=== PATIENT | male | born 1975 | race African-American/Black ===

== ENCOUNTER 2018-02-01 23:47 | Emergency (ER) | payer MEDICAID ==
[~2018-02-01] VITALS: Ht 172.7 cm; Wt 107.0 kg
[2018-02-01 23:50] VITALS: BP 145/91
== END 2018-02-02 00:38 | disposition home or self-care (01) ==
LOC: ED 02-02 00:32
DX: J45.31 Mild persistent asthma with (acute) exacerbation (principal); K21.9 Gastro-esophageal reflux disease without esophagitis; I10 Essential (primary) hypertension; E11.9 Type 2 diabetes mellitus without complications
CPT/HCPCS: 99283

== ENCOUNTER 2018-03-31 03:19 | Emergency (ER) | payer MEDICAID ==
[~2018-03-31] VITALS: Ht 175.3 cm; Wt 115.0 kg
[2018-03-31] MEDS ORDERED: HYDROcodone/APAP 5/325 TABLET PO ONE (03:30)
[2018-03-31] MEDS ORDERED: IBUPROFEN 200 MG TABLET PO ONE (03:30)
[2018-03-31] MEDS ORDERED: IBUPROFEN 200 MG TABLET ONE (03:31)
[2018-03-31] MEDS ORDERED: HYDROcodone/APAP 5/325 TABLET ONE (03:31)
[2018-03-31 04:51] VITALS: BP 155/99
== END 2018-03-31 05:08 | disposition home or self-care (01) ==
LOC: ED 03:27
DX: S93.491A Sprain of other ligament of right ankle, initial encounter (principal); S93.431A Sprain of tibiofibular ligament of right ankle, initial encounter; S93.611A Sprain of tarsal ligament of right foot, initial encounter; E11.9 Type 2 diabetes mellitus without complications; J45.909 Unspecified asthma, uncomplicated; I10 Essential (primary) hypertension; Z88.0 Allergy status to penicillin; F17.200 Nicotine dependence, unspecified, uncomplicated; X50.1XXA Overexertion from prolonged static or awkward postures, initial encounter; Y93.89 Activity, other specified; Y92.89 Other specified places as the place of occurrence of the external cause; Y99.0 Civilian activity done for income or pay
CPT/HCPCS: 99284

== ENCOUNTER 2018-07-28 07:23 | Emergency (ER) | payer SELFPAY ==
[~2018-07-28] VITALS: Ht 177.8 cm; Wt 100.0 kg
[2018-07-28 07:26] VITALS: BP 149/109
[2018-07-28] MEDS ORDERED: KETOROLAC 30 MG/1 ML IM ONE (08:00)
[2018-07-28] MEDS ORDERED: KETOROLAC 30 MG/1 ML ONE (08:06)
[2018-07-28 08:20] LABS: BASOPHILS # (AUTO) 0.05 x10^3/uL (0-0.1); BASOPHILS % (AUTO) 1 % (0-1); EOSINOPHILS % (AUTO) 5 % (1-7); LYMPHOCYTES # (AUTO) 3.06 x10^3/uL (1-3.4); LYMPHOCYTES % (AUTO) 36 % (22-44); MD NO; MEAN CORPUSCULAR HEMOGLOBIN 28.1 pg (27.5-34.5); MEAN CORPUSCULAR HGB CONC 32.4 g/dL (33.2-36.2); MEAN CORPUSCULAR VOLUME 86.9 fL (81-97); MEAN PLATELET VOLUME 8.2 fL (7.4-10.4); MONOCYTES # (AUTO) 0.73 x10^3/uL (0.2-0.8); MONOCYTES % (AUTO) 9 % (2-9); NEUTROPHILS # (AUTO) 4.39 x10^3/uL (1.8-6.8); NEUTROPHILS % (AUTO) 51 % (42-75); PLATELET COUNT 250 x10^3/uL (130-400); RED BLOOD COUNT 5.08 x10^6/uL (4.38-5.82); RED CELL DISTRIBUTION WIDTH 14.6 % (9.4-14.8)
[2018-07-28 08:32] LABS: ANION GAP 5 mmol/L (5-15); CALCIUM 9.3 mg/dL (8.5-10.1); CHLORIDE 107 mmol/L (98-107); CREATININE 1.08 mg/dL (0.7-1.3)
--- NOTE | 2018-07-28 08:49 | NUR ---
REPORT FROM SHAMIKA ZAMORA. ASSUMED CARE OF PATIENT AT THIS TIME.
--- NOTE | 2018-07-28 09:09 | NUR ---
Patient/Caregiver given discharge instructions and they have confirmed that they understand the instructions. Patient ambulatory with steady gait with crutches. Patient demonstrates proper use of crutches.
== END 2018-07-28 09:10 | disposition home or self-care (01) ==
LOC: ED 09:00
DX: M25.572 Pain in left ankle and joints of left foot (principal); M79.672 Pain in left foot; J45.909 Unspecified asthma, uncomplicated; I10 Essential (primary) hypertension; K21.9 Gastro-esophageal reflux disease without esophagitis; E11.9 Type 2 diabetes mellitus without complications
CPT/HCPCS: 36415; 73610; 73630; 80048; 82040; 84550; 85025; 96372; 99284; J1885

== ENCOUNTER 2018-08-11 08:05 | Emergency (ER) | payer OTHER ==
[~2018-08-11] VITALS: Ht 177.8 cm; Wt 100.8 kg
[2018-08-11 08:23] VITALS: BP 165/108
[2018-08-11] MEDS ORDERED: CLON0.1T22 PO (08:23)
[2018-08-11] MEDS ORDERED: METF500T17 PO (08:23)
[2018-08-11] MEDS ORDERED: RANI-448 PO (08:23)
[2018-08-11] MEDS ORDERED: ASPI-496 PO (08:23)
--- NOTE | 2018-08-11 08:36 | NUR ---
Patient given discharge instructions and they have confirmed that they understand the instructions. Patient ambulatory with steady gait.
== END 2018-08-11 08:35 | disposition home or self-care (01) ==
LOC: ED 08:20
DX: I10 Essential (primary) hypertension (principal); J45.909 Unspecified asthma, uncomplicated; K21.9 Gastro-esophageal reflux disease without esophagitis; E11.9 Type 2 diabetes mellitus without complications
CPT/HCPCS: 99281

== ENCOUNTER 2018-09-11 03:25 | Emergency (ER) | payer SELFPAY ==
[~2018-09-11] VITALS: Ht 175.3 cm; Wt 101.0 kg
[~2018-09-11 03:25] MED LIST: ASPI-496 PO; CLON0.1T22 PO; METF500T17 PO; RANI-448 PO
[2018-09-11 03:28] VITALS: BP 158/114
--- NOTE | 2018-09-11 03:58 | NUR ---
TO ROOM, ICE PACK GIVEN.
== END 2018-09-11 05:04 | disposition home or self-care (01) ==
LOC: ED 04:32
DX: S62.337A Displaced fracture of neck of fifth metacarpal bone, left hand, initial encounter for closed fracture (principal); J45.909 Unspecified asthma, uncomplicated; I10 Essential (primary) hypertension; E11.9 Type 2 diabetes mellitus without complications; K21.9 Gastro-esophageal reflux disease without esophagitis; F17.200 Nicotine dependence, unspecified, uncomplicated; X58.XXXA Exposure to other specified factors, initial encounter; Y93.89 Activity, other specified; Y92.098 Other place in other non-institutional residence as the place of occurrence of the external cause; Y99.8 Other external cause status
CPT/HCPCS: 29125; 99283

== ENCOUNTER 2018-09-19 07:42 | Emergency (ER) | payer SELFPAY | END 2018-09-19 07:55 | disposition left against medical advice (07) | LOC: ED 07:49 | DX: Z53.21 Procedure and treatment not carried out due to patient leaving prior to being seen by health care provider (principal) ==

== ENCOUNTER 2018-10-28 10:02 | Emergency (ER) | payer SELFPAY ==
[~2018-10-28] VITALS: Ht 172.7 cm; Wt 101.5 kg
[2018-10-28 10:03] VITALS: BP 123/85
[2018-10-28] MEDS ORDERED: ALBUTEROL INH (10:21)
== END 2018-10-28 11:03 | disposition home or self-care (01) ==
LOC: ED 10:45
DX: M79.642 Pain in left hand (principal); K21.9 Gastro-esophageal reflux disease without esophagitis; I10 Essential (primary) hypertension; E11.9 Type 2 diabetes mellitus without complications; J45.909 Unspecified asthma, uncomplicated; F17.200 Nicotine dependence, unspecified, uncomplicated
CPT/HCPCS: 29125; 99283

== ENCOUNTER 2018-11-02 16:59 | Emergency (ER) | payer SELFPAY ==
[~2018-11-02] VITALS: Ht 172.7 cm; Wt 100.9 kg
[2018-11-02 16:59] VITALS: BP 154/102
[~2018-11-02 16:59] MED LIST changes: +ALBUTEROL INH
[2018-11-02] MEDS ORDERED: IBUPROFEN 800 MG TABLET ONE (17:23)
[2018-11-02] MEDS ORDERED: IBUPROFEN 800 MG TABLET PO ONE (17:30)
== END 2018-11-02 17:56 | disposition home or self-care (01) ==
LOC: ED 17:30
DX: S62.305A Unspecified fracture of fourth metacarpal bone, left hand, initial encounter for closed fracture (principal); S62.307D Unspecified fracture of fifth metacarpal bone, left hand, subsequent encounter for fracture with routine healing; I10 Essential (primary) hypertension; E11.9 Type 2 diabetes mellitus without complications; K21.9 Gastro-esophageal reflux disease without esophagitis; J45.909 Unspecified asthma, uncomplicated; Z88.0 Allergy status to penicillin; Z72.9 Problem related to lifestyle, unspecified; F17.200 Nicotine dependence, unspecified, uncomplicated; X58.XXXA Exposure to other specified factors, initial encounter; Y93.89 Activity, other specified; Y92.89 Other specified places as the place of occurrence of the external cause; Y99.8 Other external cause status
CPT/HCPCS: 29125; 99283